=== PATIENT | male | born 1970 | race African-American/Black ===

== ENCOUNTER 2024-11-09 18:46 | Inpatient (IN) | payer SELFPAY ==
[~2024-11-09 18:46] MED LIST: Iopamidol-370 76% 500 ML MDV (1 ML CHARGE) ONE
[2024-11-09 19:30] LABS: Hematocrit 16.9 % (42.0-52.0); Hemoglobin 5.7 g/dL (14.0-18.0); Mean Corpuscular HGB CONC 33.7 g/dL (32.0-36.0); Mean Corpuscular Hemoglobin 25.9 pg (27.0-31.0); Mean Corpuscular Volume 76.8 fL (78.0-98.0); Mean Platelet Volume 9.6 fL (7.4-10.4); Platelet Count 653 10x3/uL (130-400); RBC Distribution Width 19.1 % (11.5-14.5)
[2024-11-09] MEDS ORDERED: Cefepime 2 GM VIAL ONE (19:37)
[2024-11-09] MEDS ORDERED: Sodium Chloride 0.9% 100 ML ONE (19:37)
[2024-11-09] MEDS ORDERED: Vancomycin 1 GM/200 ML (FROZEN) BAG ONE (19:37)
[2024-11-09 19:47] LABS: ALT (SGPT) 12 U/L (Less than 45); AST (SGOT) 30 U/L (11-34); Albumin 1.7 g/dL (3.1-4.5); Alkaline Phosphatase 121 U/L (40-110); Anion Gap 16 mmol/L (10-20); BUN (Urea Nitrogen) 31 mg/dL (8.4-25.7); Bilirubin, Total 0.8 mg/dL (0.3-1.2); Calc. Creatinine Clearance 0 mL/min (70-130); Calcium 8.9 mg/dL (7.8-10.44); Carbon Dioxide 21 mmol/L (22-29); Chloride 101 mmol/L (98-107); Estimated GFR 61; Globulin 4.1 g/dL (2.4-3.5); Glucose 110 mg/dL (70-105); Potassium 4.4 mmol/L (3.5-5.1); Protein, Total 5.8 g/dL (6.0-8.3); Sodium 134 mmol/L (136-145)
[2024-11-09 19:48] LABS: Magnesium 1.9 mg/dL (1.6-2.6)
[2024-11-09 19:49] LABS: Acetaminophen Less than 10 mcg/mL (Less than 10); Alcohol Less than 10.0 mg/dL (Less than 10); Salicylate Less than 8.0 mg/dL (Less than 8.0)
[2024-11-09 19:50] LABS: Troponin I Less than 0.010 ng/mL (< 0.028)
[2024-11-09 19:52] LABS: Bacteria/HPF Rare-Few HPF (None Seen); Bilirubin Negative (Negative); Blood, Urine Trace (Negative); CAUTI Indications for Culture Alt mental st,lethar; Clarity Turbid (Clear); Glucose, Urine (Dipstick) Normal (Negative); Ketone, Urine Negative (Negative); Leukocyte 500 Leu/uL (Negative); Nitrite Negative (Negative); Protein, Urine (Dipstick) 30 mg/dL (Neg-Trace); RBC/HPF 0-3 HPF (0-3); Specific Gravity, Urine 1.016 (1.002-1.036); Squamous Epithelial 0-3 HPF (0-3); Urobilinogen 3 mg/dL (Less than 2); WBC/HPF Greater than 50 HPF (0-3); pH, Urine 5.5 (5.0-9.0)
[2024-11-09 19:53] LABS: Urine Culture Reflex Yes Yes
[2024-11-09 19:54] LABS: Anisocytosis SLIGHT = 6-15 cells HPF (0-5); Band 5 % (5-11); Elliptocytes SLIGHT = 2-5 cells HPF (0-1); Hypochromia SLIGHT = 6-15 cells HPF (0-5); Lymphocytes 4 % (21-51); Microcytosis MODERATE=15-30 cells HPF (0-5); Monocytes 4 % (0-10); Neutrophil 87 % (42-75); Platelet Adequacy Comment Platelets Increased; Polychromasia SLIGHT = 2-3 cells HPF (0-2); Schistocytes SLIGHT = 2-5 cells HPF (0-1); Target Cells MODERATE= 6-15 cells HPF (0-1)
[2024-11-09 19:58] LABS: Amphetamine Not Detected (NotDetected); Barbiturates Screen Not Detected (NotDetected); Benzodiazepine Screen Not Detected (NotDetected); Cocaine Metabolite Screen Not Detected (NotDetected); Methadone Not Detected (NotDetected); Methamphetamine Not Detected (NotDetected); Opiate Screen Not Detected (NotDetected); Oxycodone Screen Not Detected (NotDetected); Phencyclidine (PCP) Not Detected (NotDetected); THC/Cannabinoid Screen Not Detected (NotDetected); Tricyclic Screen Detected (NotDetected)
[2024-11-09 20:04] LABS: Actual Bicarbonate (HCO3v) 21.8 mEq/L (22-28); Base Excess -1.8 mEq/L (-2.0 to +3.0); Chloride (VBG) 102 mmol/L (98-106); Hematocrit-VBG 19 % (42.0-52.0); Hemoglobin (Hb) 6.4 g/dL (13.1-17.2); Potassium (VBG) 3.81 mmol/L (3.70-5.30); Sodium 131 mmol/L (133-146); pH (venous) 7.459 (7.32-7.43)
[2024-11-09] MEDS ORDERED: Pantoprazole 40 MG VIAL ONE ×3 (20:56→23:24)
[2024-11-09] MEDS ORDERED: Pantoprazole 80 MG in Sodium Chloride 0.9% 100 ML IVPB SCH (21:00)
[2024-11-09] MEDS ORDERED: Acetaminophen 325 MG TAB PO PRN (21:27)
[2024-11-09] MEDS ORDERED: Acetaminophen 650 MG Suppository PR PRN (21:27)
[2024-11-09] MEDS ORDERED: Ondansetron PF 4 MG/2 ML Vial IVP PRN (21:27)
[2024-11-09] MEDS ORDERED: Octreotide Acetate 500 MCG/ML VIAL ONE (21:29)
[2024-11-09] MEDS ORDERED: Octreotide Acetate 1,250 MCG in Sodium Chloride 0.9% 250 ML 250 ML IVPB SCH (21:45)
[2024-11-09 22:01] LABS: CK (CPK) 110 U/L (30-200); Iron 10 ug/dL (65-175); Iron Binding Capacity, Total 149 mcg/dL (261-462)
[2024-11-09 22:02] LABS: INR-International Normal Ratio 1.3; Prothrombin Time 15.9 sec (12.0-14.7)
[2024-11-09 23:46] LABS: Lactic Acid 0.76 mmol/L (0.50-2.20)
[2024-11-10 00:10] LABS: Free T4 (Free Thyroxine) 1.66 ng/dL (0.70-1.48)
[2024-11-10] MEDS: Sodium Chloride 0.9% 1,000 ML IV SCH (00:10)
[2024-11-10 05:28] LABS: #Basophils 0.03 10x3/uL (0.0-0.2); #Eosinophils Less than 0.03 10x3/uL (0.0-0.7); %Basophils 0.1 % (0.0-1.0); %Monocytes 5.2 % (0.0-10.0); %Neutrophils 88.8 % (42.0-75.0); Hematocrit 23.2 % (42.0-52.0); Hemoglobin 7.9 g/dL (14.0-18.0); Mean Corpuscular HGB CONC 34.1 g/dL (32.0-36.0); Mean Corpuscular Hemoglobin 26.5 pg (27.0-31.0); Mean Corpuscular Volume 77.9 fL (78.0-98.0); Mean Platelet Volume 9.5 fL (7.4-10.4); Platelet Count 675 10x3/uL (130-400); RBC Distribution Width 17.6 % (11.5-14.5); Red Blood Cell (RBC) Count 2.98 mill/uL (4.70-6.10)
[2024-11-10 05:34] LABS: #Basophils 0.04 10x3/uL (0.0-0.2); #Eosinophils Less than 0.03 10x3/uL (0.0-0.7); %Basophils 0.2 % (0.0-1.0); %Eosinophils 0.1 % (0.0-10.0); %Lymphocytes 4.7 % (21.0-51.0); %Monocytes 5.3 % (0.0-10.0); %Neutrophils 88.9 % (42.0-75.0); Hematocrit 20.7 % (42.0-52.0); Hemoglobin 7.1 g/dL (14.0-18.0); Mean Corpuscular HGB CONC 34.3 g/dL (32.0-36.0); Mean Corpuscular Hemoglobin 26.9 pg (27.0-31.0); Mean Corpuscular Volume 78.4 fL (78.0-98.0); Mean Platelet Volume 9.3 fL (7.4-10.4); Platelet Count 582 10x3/uL (130-400); RBC Distribution Width 17.4 % (11.5-14.5); Red Blood Cell (RBC) Count 2.64 mill/uL (4.70-6.10)
[2024-11-10 05:49] LABS: Vancomycin, Random 10.8 ug/mL (See Comment)
[2024-11-10 05:55] LABS: Anion Gap 14 mmol/L (10-20); BUN (Urea Nitrogen) 25 mg/dL (8.4-25.7); Calc. Creatinine Clearance 96 mL/min (70-130); Carbon Dioxide 20 mmol/L (22-29); Chloride 107 mmol/L (98-107); Estimated GFR 92; Glucose 64 mg/dL (70-105); Potassium 3.7 mmol/L (3.5-5.1); Sodium 137 mmol/L (136-145)
[2024-11-10] MEDS ORDERED: Pantoprazole 80 MG, Admixture Fee 1 EACH in Sodium Chloride 0.9% 100 ML IVPB SCH ×2 (06:45→08:30)
[2024-11-10] MEDS ORDERED: Dextrose 5% in Water 1,000 ML IV PRN (07:34)
[2024-11-10] MEDS ORDERED: Insulin Lispro 100 UNIT/ML 10 ML VIAL SC PRN ×2 (07:34)
[2024-11-10] MEDS ORDERED: Glucagon 1 MG/ML KIT IM PRN (07:34)
[2024-11-10] MEDS: Vancomycin 1 GM in Premix 1 BAG IVPB SCH ×2 (08:00→17:42)
[2024-11-10] MEDS: Morphine 2 MG/ML VIAL SLOW IVP SCH ×2 (08:02→22:09)
[2024-11-10 08:49] LABS: #Basophils 0.03 10x3/uL (0.0-0.2); #Eosinophils Less than 0.03 10x3/uL (0.0-0.7); %Basophils 0.1 % (0.0-1.0); %Lymphocytes 5.8 % (21.0-51.0); %Monocytes 6.3 % (0.0-10.0); %Neutrophils 86.7 % (42.0-75.0); Hematocrit 22.3 % (42.0-52.0); Hemoglobin 7.6 g/dL (14.0-18.0); Mean Corpuscular HGB CONC 34.1 g/dL (32.0-36.0); Mean Corpuscular Hemoglobin 26.6 pg (27.0-31.0); Mean Platelet Volume 8.7 fL (7.4-10.4); Platelet Count 613 10x3/uL (130-400); RBC Distribution Width 17.3 % (11.5-14.5); Red Blood Cell (RBC) Count 2.86 mill/uL (4.70-6.10)
[2024-11-10] MEDS: Methimazole 5 MG TAB PO SCH (09:00)
[2024-11-10] MEDS: Sodium Ferric Gluconate 125 MG in Sodium Chloride 0.9% 100 ML IVPB SCH ×2 (09:00→19:58)
[2024-11-10] MEDS: Metoprolol Tartrate 25 MG TAB PO SCH (09:00)
[2024-11-10] MEDS: Cefepime 2 GM in Sodium Chloride 0.9% 100 ML IVPB SCH (09:00)
[2024-11-10 12:54] LABS: Hematocrit 21.6 % (42.0-52.0); Hemoglobin 7.4 g/dL (14.0-18.0)
[2024-11-10 17:59] LABS: Glucose POC Confirmation 46 mg/dL (80-115)
[2024-11-10] MEDS: Dextrose 50% Abboject 50 ML SYRINGE SLOW IVP PRN (18:06)
[2024-11-10] MEDS: Dextrose 5 % And 0.9 % NaCl 1,000 ML IV SCH (19:57)
[2024-11-10 21:04] LABS: Hematocrit 19.8 % (42.0-52.0); Hemoglobin 6.8 g/dL (14.0-18.0)
[2024-11-10] MEDS: Metoprolol Tartrate 5 MG (5 mL) VIAL IVP SCH (22:19)
[2024-11-10 22:29] VITALS: BP 146/67; TEMP 98.4; BMI 25.1
== END 2024-11-10 22:21 | disposition short-term general hospital (02) | DRG 871 ==
LOC: ERS 18:46 → ERHOLD 21:29 → IMCU/EMU 11-10 03:54
PROVIDERS: ADMIT Internal Medicine; ATTEND Internal Medicine
PROC: 30233N1 Transfusion of Nonautologous Red Blood Cells into Peripheral Vein, Percutaneous Approach (ICD-10-PCS; principal; 2024-11-09)
PROC: 3E03329 Introduction of Other Anti-infective into Peripheral Vein, Percutaneous Approach (ICD-10-PCS; 2024-11-09)
DX: A41.9 Sepsis, unspecified organism (principal); G93.41 Metabolic encephalopathy; L89.324 Pressure ulcer of left buttock, stage 4; N39.0 Urinary tract infection, site not specified; N17.9 Acute kidney failure, unspecified; M86.9 Osteomyelitis, unspecified; G82.20 Paraplegia, unspecified; D64.9 Anemia, unspecified; E05.90 Thyrotoxicosis, unspecified without thyrotoxic crisis or storm; Z79.899 Other long term (current) drug therapy
CPT/HCPCS: 36415; 36416; 36430; 70450; 70490; 70551; 71045; 74177; 80048; 80053; 80202; 80306; 80307; 81001; 82140; 82274; 82805; 83540; 83550; 83605; 83735; 84439; 84443; 84481; 84484; 85025; 85610; 86850; 86900; 86901; 87040; 87077; 87086; 87149; 87186; 93005; 97139; J0692; J2272; J2354; J2470; J2916; J3370; J7030; J7042; J7999; P9016; Q9967